=== PATIENT | female | born 1955 | race African-American/Black ===

== ENCOUNTER 2020-02-12 10:16 | Day surgery (SDC) | payer MEDICARE, OTHER ==
[~2020-02-12] VITALS: Ht 162.6 cm; Wt 89.5 kg
[~2020-02-12 10:16] MED LIST: ASPIRIN 81M81 MG/TA2 PO; COZAAR 50MG50 MG/TAB PO; FLONASE NASAL S16 GM NS; GLUCOPHAGE1000 MG PO; HCTZ 25MG TAB25 MG PO; IRON325 MG PO; NEXIUM 40MG40 MG PO; SINGULAIR 110 MG/TAB PO; THERA-D 20002000 IU PO; ZOCOR 20MG20 MG PO; ZOLOFT 100MG100 MG PO; ZOLOFT 25MG25 MG PO; ZYRTEC 10MG10 MG PO
[2020-02-12 11:00] VITALS: BP 142/86; PULSE 81; TEMP 98.3
[2020-02-12] MEDS ORDERED: JANUMET 1000 MG1 TA1 PO (11:10)
[2020-02-12] MEDS ORDERED: COZAAR 25MG25 MG/TAB PO (11:10)
[2020-02-12] MEDS ORDERED: ZYRTEC 10MG10 MG PO (11:12)
[2020-02-12] MEDS ORDERED: VITAMIN C500 MG PO (11:15)
[2020-02-12] MEDS ORDERED: PRILOSEC 20MG20 MG PO (11:15)
[2020-02-12] MEDS ORDERED: PRESERVISION1 SGL PO (11:16)
[2020-02-12] MEDS ORDERED: IRON TABLETS325 MG PO (11:17)
[2020-02-12 12:35] VITALS: BP 131/79; PULSE 58
--- NOTE | 2020-02-12 12:35 | NUR ---
Patient brought back to [facility] via cart. Ambulated to chair with one assist. Placed on monitors, vital signs stable. IV infusing without difficulty. Patient denies pain or nausea. Requesting coffee and muffin. Wanda at bedside for report. Warm blanket provided. Son at bedside. Will continue to monitor.
[2020-02-12 12:50] VITALS: BP 141/73; PULSE 70
--- NOTE | 2020-02-12 12:50 | NUR ---
MD at bedside to explain results to patient and son.
[2020-02-12 13:05] VITALS: BP 144/75; PULSE 75
--- NOTE | 2020-02-12 13:05 | NUR ---
Patient tolerating food and drink without difficulty. States she feels ready to go home. IV removed, intact. Discharge instructions and education packet reviewed. All questions answered. Patient to get dressed at this time.
--- NOTE | 2020-02-12 13:20 | NUR ---
Patient brought down to entrance via wheel chair. Son to drive patient home.
== END 2020-02-12 13:20 | disposition home or self-care (01) ==
LOC: SDCO 10:16
DX: Z12.11 Encounter for screening for malignant neoplasm of colon (principal); D50.9 Iron deficiency anemia, unspecified; D12.4 Benign neoplasm of descending colon; D12.8 Benign neoplasm of rectum; K64.0 First degree hemorrhoids; K29.70 Gastritis, unspecified, without bleeding; K29.80 Duodenitis without bleeding; Z91.013 Allergy to seafood; Z88.0 Allergy status to penicillin; Z88.8 Allergy status to other drugs, medicaments and biological substances; Z79.82 Long term (current) use of aspirin; Z79.84 Long term (current) use of oral hypoglycemic drugs; Z79.51 Long term (current) use of inhaled steroids; K21.9 Gastro-esophageal reflux disease without esophagitis; E78.5 Hyperlipidemia, unspecified; G47.33 Obstructive sleep apnea (adult) (pediatric); M19.90 Unspecified osteoarthritis, unspecified site; Z96.659 Presence of unspecified artificial knee joint; Z87.891 Personal history of nicotine dependence
CPT/HCPCS: J2704; J3010; J7120

== ENCOUNTER → 2020-02-23 | Outpatient (CLI) | payer MEDICARE, OTHER ==
[~2020-02-23] MED LIST changes: +COZAAR 25MG25 MG/TAB PO; +IRON TABLETS325 MG PO; +JANUMET 1000 MG1 TA1 PO; +PRESERVISION1 SGL PO; +PRILOSEC 20MG20 MG PO; +VITAMIN C500 MG PO
== END ==
LOC: COL.RAD 10:18
DX: C18.9 Malignant neoplasm of colon, unspecified (principal); R91.1 Solitary pulmonary nodule
CPT/HCPCS: Q9967

== ENCOUNTER 2020-02-26 09:08 | Inpatient (IN) | payer MEDICARE, OTHER ==
[~2020-02-26] VITALS: Ht 162.6 cm; Wt 87.7 kg
[2020-03-09] VITALS (9 sets, daily range): BP systolic 120–166; BP diastolic 74–91; PULSE 83–115; TEMP 97–98.6
--- NOTE | 2020-03-09 17:32 | NUR ---
PT TO ROOM 347 PER BED WITH REPORT FROM CLAUDIA MILLAN PACU@[id number]. VSS, PT IS A/O X3 WITH CLEAR LUNG SOUNDS. ROBOTIC INCISIONS X6 WITH LOWER TRANSVERSE INCISION WITH MEDIPORE TAPE. PT REPORTS NAUSEA ON ARRIVAL. ICE WATER AND BROTH PROVIDED.
--- NOTE | 2020-03-09 21:00 | NUR ---
Pt. sitting up in bed at this time. Pt. has been nauseated, gave zofran. Pt. is A&OX3, assessment complete. IV to rt. hand patent, IV fluids infusing per orders. Pt. denies pain or other needs, call light within reach.
[2020-03-10 05:32] VITALS: BP 125/72; PULSE 104; TEMP 98.9
[2020-03-10 07:26] LABS: BASO % 0.1 % (0.0-2.0); GRAN # 14.2 (1.4-6.5); GRAN % 83.7 % (42.2-75.2); HEMATOCRIT 37.3 % (37.0-47.0); HEMOGLOBIN 11.8 g/dl (12.5-16.0); LYMPH # 1.5 (1.2-3.4); LYMPH % 8.7 % (20.0-51.0); MEAN CELL VOLUME 79 fl (80.0-100.0); MEAN CORPUSCULAR HEMOGLOBIN 25 pg (27.0-31.0); MEAN CORPUSCULAR HGB CONC 32 g/dl (33.0-37.0); MEAN PLATELET VOLUME 10.2 fl (7.4-10.4); MONO # 1.2 (0.1-0.6); PLATELET COUNT 344 K/mm3 (130-400); RED BLOOD COUNT 4.75 M/mm3 (4.10-5.30); REDCELL DISTRIBUTION WIDTH-CV 15.7 % (11.5-14.5)
[2020-03-10 07:35] LABS: CALCIUM 9.3 mg/dL (8.4-10.2); CREATININE, serum 0.79 (0.52-1.25); POTASSIUM 4.1 mmol/L (3.4-5.0)
[2020-03-10 08:08] VITALS: BP 131/69; PULSE 107; TEMP 98.4
--- NOTE | 2020-03-10 10:19 | NUR ---
PT INDEPENDENT IN ROOM. AMBULATING IN [place]. REFUSED ALL AM MEDS. NAUSEA IMPROVING. ABDOMINAL INCISIONS CDI. IV TO LFA. FIELD CATHETER DISCONTINUED PER ORDERS.
[2020-03-10 11:18] VITALS: BP 142/82; PULSE 105; TEMP 98
[2020-03-10 16:03] VITALS: BP 108/52; PULSE 112; TEMP 98.5
[2020-03-10 20:54] VITALS: BP 127/75; PULSE 92; TEMP 99
[2020-03-11] VITALS (8 sets, daily range): BP systolic 92–122; BP diastolic 47–85; PULSE 75–108; TEMP 97.5–99
--- NOTE | 2020-03-11 04:38 | NUR ---
Patient sleeping in bed. Patient has minimal complaints of pain.
--- NOTE | 2020-03-11 06:29 | NUR ---
Patient slept well throughout the night. patient has no complaints this morning.
[2020-03-11 06:58] LABS: BASO % 0.1 % (0.0-2.0); EOS % 0.2 % (0-4.0); GRAN # 6.4 (1.4-6.5); GRAN % 65.8 % (42.2-75.2); HEMOGLOBIN 11.2 g/dl (12.5-16.0); LYMPH # 2.4 (1.2-3.4); LYMPH % 24.2 % (20.0-51.0); MEAN CELL VOLUME 79 fl (80.0-100.0); MEAN CORPUSCULAR HEMOGLOBIN 25 pg (27.0-31.0); MEAN CORPUSCULAR HGB CONC 31 g/dl (33.0-37.0); MONO # 0.9 (0.1-0.6); MONO % 9.5 % (1.7-9.3); PLATELET COUNT 299 K/mm3 (130-400); REDCELL DISTRIBUTION WIDTH-CV 15.9 % (11.5-14.5)
[2020-03-11 06:59] LABS: HEMATOCRIT 35.7 % (37.0-47.0)
[2020-03-11 07:04] LABS: CALCIUM 9.2 mg/dL (8.4-10.2); CREATININE, serum 0.74 (0.52-1.25); POTASSIUM 3.8 mmol/L (3.4-5.0)
--- NOTE | 2020-03-11 09:08 | NUR ---
Lying in bed watching TV. Alert and oriented x4. Has been in the halls ambulating. Denies pain at this time. Says pain increases a little with activity. Lap sites x4 on abd with bandaids CDI. Low right incision CDI. Low transverse abd incision with some drainage noted on dressing. Patient says that she is passing gas, had a bowel movement this morning that was loose and almost black in color. Patient says the bowel movement was the same as it was yesterday. Reassured patient this is normal. Hopes to go home today. Denies additional needs at this time.
--- NOTE | 2020-03-11 09:55 | NUR ---
Initial visit; Patient thanked [employer] for being available for her and others and offering God's blessings.
--- NOTE | 2020-03-11 12:05 | NUR ---
Patient up in halls ambulating. Returns to room to eat lunch. Denies needs.
--- NOTE | 2020-03-11 13:28 | NUR ---
Sitting up in bed watching TV. Patient asks if she has been getting her oral diabetic medication, reviewed MAR, explain that she has not. Patient questions why she would not. Explain that sometimes the provider manages with insulin while in the hospital. Patient is concerned that this means she will have to go home on insulin. Reassurance provided to the patient and explained that this does not mean she has to go home on insulin. Explain that we can further discuss with Dr. Chambers when he comes in. Patient denies pain or further needs at this time.
--- NOTE | 2020-03-11 16:19 | NUR ---
Sitting up in bed. Patient says that she is hopeful to go home tomorrow. Denies pain. Has had a couple more dark loose stools through the day. Patient denies additional needs or concerns at this time.
--- NOTE | 2020-03-11 17:18 | NUR ---
Sitting up in bed. Has been up independently in room and ambulating in halls. Denies pain at this time or any further needs or concerns.
--- NOTE | 2020-03-11 21:30 | NUR ---
Patient resting in bed. Patient has no complaints. Patient is ambulating well and having no problems going to the bathroom.
[2020-03-12 03:44] VITALS: BP 110/51; PULSE 68; TEMP 98
--- NOTE | 2020-03-12 04:17 | NUR ---
Patient got up to use the bathroom and had a lot of pain. Patient requested something for pain. Patient given ultram per orders.
--- NOTE | 2020-03-12 05:59 | NUR ---
Ultram not relieving pain. Gave 5 mg of oxycodone.
[2020-03-12 08:25] VITALS: BP 105/50; PULSE 82; TEMP 97.5
--- NOTE | 2020-03-12 09:00 | NUR ---
Patient alert and oriented, answers questions appropriately. See assessment. Abdomen soft, non tender, non distended. Bowel sounds active x4 quads. +Flatus. +Bowel movement. Lap sites to abdoment with edges well approximated, no redness or drainage noted. ERAS protocol reviewed with patient. No c/o at this time.
[2020-03-12] MEDS ORDERED: ULTRAM 50MG TAB50 MG PO (10:06)
[2020-03-12] MEDS ORDERED: TYLENOL 500MG500 MG PO (10:06)
[2020-03-12 12:27] VITALS: BP 125/68; PULSE 101; TEMP 98.8
--- NOTE | 2020-03-12 13:48 | NUR ---
Discharge instructions reviwed with patient, verbalized understanding. Discharged via wheelchair to auto/home with family at 1340.
== END 2020-03-12 13:40 | disposition home or self-care (01) | DRG 331 ==
LOC: INPTSU 03-09 10:31 → SURG 03-09 13:15
PROVIDERS: ADMIT Surgery
PROC: 8E0W4CZ Robotic Assisted Procedure of Trunk Region, Percutaneous Endoscopic Approach (ICD-10-PCS; 2020-03-09)
PROC: 0DTN4ZZ Resection of Sigmoid Colon, Percutaneous Endoscopic Approach (ICD-10-PCS; principal; 2020-03-09 13:15)
DX: C20 Malignant neoplasm of rectum (principal); D72.829 Elevated white blood cell count, unspecified
CPT/HCPCS: A4314; A9284; J0690; J1100; J1170; J1650; J1885; J2250; J2370; J2405; J2550; J2704; J2795; J3010; J7120

== ENCOUNTER 2020-04-19 05:29 | Day surgery (SDC) | payer MEDICARE, OTHER ==
[~2020-04-19] VITALS: Ht 160 cm; Wt 89.5 kg
[~2020-04-19 05:29] MED LIST changes: +TYLENOL 500MG500 MG PO; +ULTRAM 50MG TAB50 MG PO
[2020-04-19 05:53] VITALS: BP 148/85; PULSE 95; TEMP 97.6
[2020-04-19 08:02] VITALS: BP 138/68; PULSE 84; TEMP 97.3
[2020-04-19] MEDS ORDERED: NORCO 325 MG-51 TAB PO (08:03)
--- NOTE | 2020-04-19 08:14 | NUR ---
PT RETURNED BACK TO BAY#6 PER CART. DENIES PAIN, NAUSEA AT THIS TIME. COFFEE AND CRACKERS OFFERED. [place] DRESSING DRY. WILL CONT TO MONITOR.
[2020-04-19 08:21] VITALS: BP 144/83; PULSE 83
--- NOTE | 2020-04-19 08:23 | NUR ---
TOLERATING BLUEBERRY MUFFIN AND COFFEE. SURGICAL AREA DRY, DRESSING INTACT. WILL CONT TO MONITOR.
[2020-04-19 08:45] VITALS: BP 140/70; PULSE 68
--- NOTE | 2020-04-19 08:55 | NUR ---
PT DENIES PAIN AND NAUSEA, VOMITING. TOLERATING FLUIDS. IV DC'D. DISCHARGE INSTRUCTIONS GIVEN.
--- NOTE | 2020-04-19 10:08 | NUR ---
PT SIGNED DISMISSAL INSTRUCTIONS. [place] DENIES QUESTIONS. PT DC'D PER WC TO PT VEHICLE, SON DRIVING.
== END 2020-04-19 09:08 | disposition home or self-care (01) ==
LOC: SDCO 05:29
DX: C20 Malignant neoplasm of rectum (principal); C77.9 Secondary and unspecified malignant neoplasm of lymph node, unspecified; E11.9 Type 2 diabetes mellitus without complications; I10 Essential (primary) hypertension; D64.9 Anemia, unspecified; K21.9 Gastro-esophageal reflux disease without esophagitis; E78.00 Pure hypercholesterolemia, unspecified; G47.33 Obstructive sleep apnea (adult) (pediatric); E78.5 Hyperlipidemia, unspecified; J30.2 Other seasonal allergic rhinitis; Z88.0 Allergy status to penicillin; Z79.899 Other long term (current) drug therapy; Z79.84 Long term (current) use of oral hypoglycemic drugs; Z88.8 Allergy status to other drugs, medicaments and biological substances; Z79.82 Long term (current) use of aspirin; Z87.891 Personal history of nicotine dependence; Z96.651 Presence of right artificial knee joint; Z80.0 Family history of malignant neoplasm of digestive organs; Z85.828 Personal history of other malignant neoplasm of skin; Z80.42 Family history of malignant neoplasm of prostate; Z93.3 Colostomy status
CPT/HCPCS: C1788; J0690; J1644; J2250; J2704; J7030

== ENCOUNTER → 2020-09-21 | Outpatient (CLI) | payer MEDICARE, OTHER ==
[~2020-09-21] MED LIST changes: +NORCO 325 MG-51 TAB PO
== END ==
LOC: COL.RAD 07:51
DX: C18.9 Malignant neoplasm of colon, unspecified (principal); C19 Malignant neoplasm of rectosigmoid junction
CPT/HCPCS: Q9967

== ENCOUNTER → 2021-03-27 | Outpatient (CLI) | payer MEDICARE, OTHER | LOC: COL.RAD 07:54 | DX: K76.0 Fatty (change of) liver, not elsewhere classified (principal); C19 Malignant neoplasm of rectosigmoid junction | CPT/HCPCS: Q9967 ==

== ENCOUNTER 2021-04-05 08:55 | Day surgery (SDC) | payer MEDICARE, OTHER ==
[~2021-04-05] VITALS: Ht 160 cm; Wt 85.8 kg
[2021-04-05 10:56] VITALS: BP 134/88; PULSE 65; TEMP 97.1
[2021-04-05 11:05] VITALS: BP 134/84; PULSE 71; TEMP 97.9
[2021-04-05 11:15] VITALS: BP 120/95; PULSE 76
[2021-04-05 11:30] VITALS: BP 147/72; PULSE 65
[2021-04-05 11:36] VITALS: BP 125/74; PULSE 77
--- NOTE | 2021-04-05 11:45 | NUR ---
1105 Pt returns from endo procedure via cart and RN assist to [facility] [place] [facility]. Pt ambulates from cart to recliner with RN assist. Monitors on and alarms set. Call light within reach. Report received from MONTY Chao. Pt alert and oriented. Pt requests coffee and muffin. Pt denies any pain or nausea. 1115 Pt taking food and drink well. No complications noted. Pt's son present in room. 1140 Discharge instructions given to pt and son. All questions answered to their satisfaction. Handed to pt are a thank you card and discharge information. 1145 Pt transferred out of the hospital via wheelchair and this RN assist, to private vehicle driven by pt's son.
== END 2021-04-05 11:45 | disposition home or self-care (01) ==
LOC: SDCO 08:55
DX: Z12.11 Encounter for screening for malignant neoplasm of colon (principal); K57.30 Diverticulosis of large intestine without perforation or abscess without bleeding; I10 Essential (primary) hypertension; E78.5 Hyperlipidemia, unspecified; E11.9 Type 2 diabetes mellitus without complications; G47.33 Obstructive sleep apnea (adult) (pediatric); K21.9 Gastro-esophageal reflux disease without esophagitis; M19.90 Unspecified osteoarthritis, unspecified site; D64.9 Anemia, unspecified; R91.8 Other nonspecific abnormal finding of lung field; Z85.048 Personal history of other malignant neoplasm of rectum, rectosigmoid junction, and anus; Z99.89 Dependence on other enabling machines and devices; Z98.0 Intestinal bypass and anastomosis status; Z85.44 Personal history of malignant neoplasm of other female genital organs; Z87.891 Personal history of nicotine dependence; Z80.9 Family history of malignant neoplasm, unspecified
CPT/HCPCS: G0105; J2704; J7030

== ENCOUNTER → 2023-01-04 | Outpatient (CLI) | payer MEDICARE, OTHER | LOC: COL.RAD 12-27 10:00 | DX: R91.1 Solitary pulmonary nodule (principal); C19 Malignant neoplasm of rectosigmoid junction | CPT/HCPCS: Q9967 ==